=== PATIENT | female | born 1970 | race Two or more races ===

== ENCOUNTER 2017-03-30 18:46 | Emergency (ER) | payer OTHER ==
[~2017-03-30] VITALS: Ht 157.5 cm; Wt 59.9 kg
[2017-03-30] MEDS ORDERED: BC PILL (19:35)
[2017-03-30] MEDS ORDERED: PROZAC (19:35)
[2017-03-30] MEDS ORDERED: THYROID (19:35)
--- NOTE | 2017-03-30 19:52 | NUR ---
Dr. Bennett at bedside for MSE
[2017-03-30] MEDS ORDERED: FLUORESCEIN SODIUM 1 MG STRIP OP ONE (20:00)
[2017-03-30] MEDS ORDERED: TETRACAINE HCL 0.5% OPHT DROP 2 ML BOTTLE OP ONE (20:00)
[2017-03-30 20:06] VITALS: BP 144/85
--- NOTE | 2017-03-30 20:06 | NUR ---
Patient discharged to home in stable conditon. Written and verbal after care instructions given. Patient verbalizes understanding of instructions.
[2017-03-30] MEDS ORDERED: TETRACAINE HCL 0.5% OPHT DROP 2 ML BOTTLE ONE (20:07)
[2017-03-30] MEDS ORDERED: FLUORESCEIN SODIUM 1 MG STRIP ONE (20:07)
== END 2017-03-30 20:07 | disposition home or self-care (01) ==
LOC: EDSEX 18:48 → ER 18:48
DX: S05.02XA Injury of conjunctiva and corneal abrasion without foreign body, left eye, initial encounter (principal); F17.200 Nicotine dependence, unspecified, uncomplicated; X58.XXXA Exposure to other specified factors, initial encounter; Y93.89 Activity, other specified; Y92.89 Other specified places as the place of occurrence of the external cause; Y99.8 Other external cause status
CPT/HCPCS: 99283; A4663